=== PATIENT | male | born 1965 | race Caucasian/White ===

== ENCOUNTER 2016-12-04 09:30 | Emergency (ER) | payer OTHER ==
[2016-12-04] MEDS ORDERED: COZAAR25 M1 PO (09:51)
[2016-12-04] MEDS ORDERED: LIPITOR40 M1 PO (09:51)
[2016-12-04] MEDS ORDERED: NORCO 5-325 TA1 EACH PO (10:24)
== END 2016-12-04 10:45 ==
LOC: EDMED 09:30
DX: S16.1XXA Strain of muscle, fascia and tendon at neck level, initial encounter (principal); I10 Essential (primary) hypertension; E78.5 Hyperlipidemia, unspecified; R42 Dizziness and giddiness; F17.210 Nicotine dependence, cigarettes, uncomplicated; V49.40XA Driver injured in collision with unspecified motor vehicles in traffic accident, initial encounter

== ENCOUNTER 2016-12-31 09:47 | Emergency (ER) | payer OTHER ==
[~2016-12-31 09:47] MED LIST: COZAAR25 M1 PO; LIPITOR40 M1 PO; NORCO 5-325 TA1 EACH PO
[2016-12-31 10:52] LABS: BASO % 0.2 % (0-2); EOS % 2.8 % (0-7); EOSINOPHIL ABSOLUTE COUNT 0.2 tho/cmm (0.0-0.7); HCT-HEMATOCRIT 48.2 % (36.0-53.5); HGB-HEMOGLOBIN 16.5 gm/dl (13.5-17.0); LYMPH % 21.2 % (20-45); LYMPH ABSOLUTE COUNT 1.2 tho/cmm (0.8-4.5); MCH (MEAN CORPUSCULAR HGB) 29.9 pg (28.0-32.0); MCHC MEAN CORPUSCULAR HGB CONC 34.2 % (32.0-36.0); MCV (MEAN CELL VOLUME) 87.5 fl (82.0-96.0); MEAN PLATELET VOLUME 9.3 cmc (9.4-12.4); MONO % 8.3 % (0-12); MONOCYTE ABSOLUTE COUNT 0.5 tho/cmm (0.0-1.2); NEUTROPHIL ABSOLUTE COUNT 3.8 tho/cmm (1.6-8.0); NEUTROPHIL-AUTOMATED 3.8 tho/cmm (1.6-8.0); NEUTROPHILS % 67.5 % (40-80); PLATELET COUNT 214 tho/cmm (150-450); RED BLOOD COUNT 5.51 mil/cmm (4.40-5.70); RED CELL DISTRIBUTION WIDTH 12.4 % (12.4-16.4); WHITE BLOOD COUNT 5.7 tho/cmm (4.0-10.0)
[2016-12-31 11:09] LABS: ALCOHOL (ETOH) <10 mg/dl (<10); ANION GAP 14 mmol/L (0-20); BLOOD UREA NITROGEN 11 mg/dl (6-24); CALCIUM 9.7 mg/dl (8.5-10.5); CARBON DIOXIDE-VENOUS 24 mmol/L (22-32); CHLORIDE 105 mmol/l (96-110); CREATININE 1.04 mg/dl (0.60-1.30); GLUCOSE 102 mg/dL (70-110); POTASSIUM 3.9 mmol/L (3.7-5.1); SODIUM 139 mmol/L (135-145); eGFR VALUE FOR BLACK >90 mL/Min
== END 2016-12-31 11:55 ==
LOC: EDMED 09:47
PROVIDERS: Emergency Medicine
PROC: 0HQ0XZZ Repair Scalp Skin, External Approach (ICD-10-PCS; principal; 2016-12-31)
DX: S01.01XA Laceration without foreign body of scalp, initial encounter (principal); I10 Essential (primary) hypertension; E78.00 Pure hypercholesterolemia, unspecified; V49.40XA Driver injured in collision with unspecified motor vehicles in traffic accident, initial encounter
CPT/HCPCS: G0480